=== PATIENT | male | born 1965 | race Caucasian/White ===

== ENCOUNTER 2022-08-09 08:07 | Day surgery (SDC) | payer BC ==
--- NOTE | 2022-08-02 13:37 | EKG ---
Test Date: 2022-08-01 Test Time: 14:26:57 Roll Carrier: MIRA MEASUREMENT RESULTS: Intervals: Rate: 70 LA: 144 QRSD: 92 QT: 390 QTc: 421 Savery: P: 34 LA: 144 QRS: -28 T: 33 INTERPRETIVE STATEMENTS: Normal sinus rhythm Normal ECG No previous ECG available for comparison Electronically Signed On 08-02-22 13:34:59 CDT by Carlos Cordon
[2022-08-07 08:47] LABS: SARS-CoV-2 Antigen Rapid Res Negative (Negative)
[2022-08-09] MEDS ORDERED: LIDOCAINE 2% MPF 5 ML VIAL ONE (08:31)
[2022-08-09] MEDS ORDERED: dexAMETHasone 10 MG/ML VIAL ONE (08:31)
[2022-08-09] MEDS ORDERED: FENTANYL CITR 250 MCG/5 ML ONE (08:31)
[2022-08-09] MEDS ORDERED: ROCURONIUM 50 MG/5 ML VIAL IV ONE (08:31)
[2022-08-09] MEDS ORDERED: propofoL 200 MG/20 ML VIAL IV ONE (08:31)
[2022-08-09] MEDS ORDERED: ONDANSETRON 4 MG/2 ML VIAL ONE ×2 (08:32→10:53)
[2022-08-09] MEDS ORDERED: MIDAZOLAM HCL 2 MG/2 ML INJ ONE (08:32)
[2022-08-09] MEDS ORDERED: Ringers Lactate 1,000 ML IV ONE ×2 (08:32→10:54)
[2022-08-09] MEDS ORDERED: CEFAZOLIN SODIUM 1 GM/VIAL ONE (08:32)
[2022-08-09] MEDS ORDERED: BUPIVACAINE 0.25% PF 10 ML VIAL ONE (08:51)
[2022-08-09] MEDS ORDERED: KETOROLAC 30 MG/ML INJ ONE (10:20)
[2022-08-09] MEDS ORDERED: GLYCOPYRROLATE 0.2 MG/ML SYR ONE (10:22)
--- NOTE | 2022-08-09 10:23 | P.OP ---
Preoperative diagnosis: Incarcerated Ventral Incisional Hernia Postoperative diagnosis: Incarcerated Ventral Incisional Hernia Primary procedure: Laparoscopic Ventral Incisional Hernia Repair with Mesh Anesthesia: GETA + Local Estimated blood loss: <5cc Specimen: none Findings: Incarcerated Ventral Incisional Hernia - omentum Complications: None Implants: Bard Ventralite ST 11.4cm mesh, sorbafix Transferred to: Recovery Room Condition: Good
[2022-08-09] MEDS: MEPERIDINE HCL 25 MG/ML SYR ONE ×2 (10:35→10:40)
[2022-08-09] MEDS ORDERED: NEOSTIGMINE 1 MG/ML -10 ML VIAL ONE (10:40)
[2022-08-09] MEDS: HYDROMORPHONE HCL 1 MG/ML INJ ONE ×2 (10:45→11:05)
--- NOTE | 2022-08-09 11:01 | OP ---
Date of Procedure: 08/09/2022 Surgeon: Eder Blum MD, Preoperative Diagnosis: Incarcerated ventral incisional hernia. Postoperative Diagnosis: Incarcerated ventral incisional hernia. Procedure Performed: Laparoscopic ventral hernia repair with mesh. Anesthesia: General endotracheal plus local. Estimated Blood Loss: Less than 5 cc. Specimen: None. Findings: Incarcerated ventral incisional hernia with omentum contained. Complications: None. Implants: Bard Ventralight ST mesh with Echo Positioning System, 11.4 cm round mesh was used. Sorba Fix absorbable fixation tacks, 45 of them used approximately. Disposition: Patient transferred to recovery room in good condition. Procedure In Detail: After informed was obtained, patient was brought to the operating room, and pre pped and draped in the usual sterile fashion. After adequate anesthesia was achieve, the area of the left upper quadrant was anesthetized with 0.25% Marcaine and sharply incised. A 5 mm trocar was hernandez elise under direct visualization without evidence of any complication. Additional trocar was placed in the left lower quadrant, both of these were similarly anesthetized and sharply incised. A 5 mm troc ar was placed under direct visualization without evidence of any complication. Insufflation was main tained at 15 mmHg at this time and various forms of desufflation were used throughout the procedure t o ensure good mesh placement. Ultimately at this point, I inspected the ventral incisional hernia in the midline supraumbilical position. There was omentum contained within a [place] cheese appearing ar ea of ventral incisional hernia, which was approximately 3 cm to 4 cm in size. At this point, I used the LigaSure device to reduce the omental contents using LigaSure device to reduce the omentum to th e normal intraabdominal position. At this point, I swept the preperitoneal fat out of the way to all ow for good landing position of the mesh. I sized a 11.4 cm mesh and brought it onto the back field at this point. I then proceeded to close the defect using an Endo Stitch with V-Loc in a running fas hion with good approximation of the tissues at this point, imbricating the hernia sac. At this point , I then brought the 11.4 cm Bard Ventralight mesh using the balloon deployment system and deployed i t in the central portion of the defect and used the SorbaFix absorbable fixation tacks to secure it t o the anterior abdominal wall and a single crown at this point. The balloon was then removed through the 12 mm trocar site and an additional crown of tacks was used making a double crown type appositio n to the anterior bowel wall with good approximation of the mesh to the anterior bowel wall. I then inspected the area under multiple desufflation and inflation pressures and found it to be in good pos ition. I then closed the 12 mm trocar site with a [place] suture passer with 0 Vicryl in int errupted fashion with good approximation of tissues. I then completely desufflated the abdomen under direct visualization without evidence of any complication. The remaining trocars were removed. All skin incisions were then copiously irrigated and closed with a 4-0 Monocryl in a running fashion on the left upper quadrant incision and the right lower quadrant was closed with interrupted rich as there was a small arterial bleeder at this point, which was fulgurated. A sterile dressing was then placed over top. The patient tolerated the procedure without evidence of any complication and was tr ansferred back in good condition. All counts were correct at the end of the case. CANDELARIO/AMANDA Voice ID: [id number] Report ID: [id number]
[2022-08-09 11:19] VITALS: O2SAT 100
[2022-08-09] MEDS ORDERED: HYDROCODONE/APAP 7.5/325 MG TAB ONE (11:45)
[2022-08-09 12:26] VITALS: BP 117/80; TEMP 97.4
== END 2022-08-09 12:00 | disposition home or self-care (01) ==
LOC: OR 08:07
PROVIDERS: ATTEND Surgery
PROC: 0WUF4JZ Supplement Abdominal Wall with Synthetic Substitute, Percutaneous Endoscopic Approach (ICD-10-PCS; principal; 2022-08-09 09:45)
DX: K43.6 Other and unspecified ventral hernia with obstruction, without gangrene (principal); I10 Essential (primary) hypertension; E78.00 Pure hypercholesterolemia, unspecified; Z85.46 Personal history of malignant neoplasm of prostate; Z20.822 Contact with and (suspected) exposure to COVID-19
CPT/HCPCS: 93005; 36415; 87811; 49653; J2704; J2710; J2001; J2250; J3010; J1100; J2175; J1170; J7120 ×2; J2405 ×2; J0690; C1781